=== PATIENT | female | born 1975 | race Hispanic/Latino ===

== ENCOUNTER 2021-02-04 06:53 | Day surgery (SDC) | payer OTHER ==
[2021-02-03 16:27] LABS: BASOPHILS % (AUTO) 0.6 % (0.0-5.0); EOSINOPHILS % (AUTO) 1.7 % (0.0-8.0); HEMATOCRIT 31.9 % (36-48); LYMPHOCYTES % (AUTO) 20.3 % (21.0-51.0); MEAN CORPUSCULAR HEMOGLOBIN 23.7 pg (27.0-33.0); MEAN CORPUSCULAR HGB CONC 30.4 g/dL (32.0-36.0); MONOCYTES % (AUTO) 9.9 % (3.0-13.0); NEUTROPHILS % (AUTO) 67.2 % (40.0-77.0); PLATELET COUNT (AUTO) 394 K/uL (130-400); RED BLOOD CELL COUNT(AUTO) 4.09 MIL/uL (4.00-5.50); RED CELL DISTRIBUTION WIDTH 17.8 % (11.0-15.5); WHITE BLOOD COUNT (AUTO) 9.1 K/uL (4.8-10.8)
[2021-02-03 16:52] VITALS: BP 117/60
[~2021-02-04] VITALS: Ht 157.5 cm; Wt 78.7 kg
[2021-02-04] VITALS (14 sets, daily range): BP systolic 94–118; BP diastolic 45–64
[~2021-02-04 06:53] MED LIST: ACET1TAB25 PO; LEVO50TA11 PO; LOSA50TA64 PO; SERT50TA PO
[2021-02-04] MEDS ORDERED: CEFAZOLIN SODIUM 1 GM VIAL ONE (07:40)
[2021-02-04] MEDS ORDERED: LACTATED RINGERS 1000ML 1,000 ML IV ONE (07:40)
[2021-02-04] MEDS ORDERED: MIDAZOLAM HCL 1 MG/ML 2ML VIAL ONE (07:57)
[2021-02-04] MEDS ORDERED: PROPOFOL 10 MG/ML 20ML VIAL IV ONE (07:57)
[2021-02-04] MEDS ORDERED: ROCURONIUM 10MG/1ML SYR 10 MG/ML ML ONE (07:59)
[2021-02-04] MEDS ORDERED: ONDANSETRON 4MG INJ ONE (07:59)
[2021-02-04] MEDS ORDERED: FENTANYL CITRATE PF 50 MCG/1 ML 2ML VIAL ONE ×2 (08:00→08:20)
== END 2021-02-04 10:41 | disposition home or self-care (01) ==
LOC: DAH 06:53
PROVIDERS: ATTEND Specialist
DX: N92.0 Excessive and frequent menstruation with regular cycle (principal); N75.1 Abscess of Bartholin's gland; Z20.822 Contact with and (suspected) exposure to COVID-19; I10 Essential (primary) hypertension; F41.9 Anxiety disorder, unspecified; F32.9 Major depressive disorder, single episode, unspecified; Z79.899 Other long term (current) drug therapy
CPT/HCPCS: 36415; 56440; 58120; 84703; 85025; 87070; 87076; 87077; 87186; 87205; 87635; A4215; A4221; A4222; A4223; A4344; A4351; A4663; C9803; J0690; J2250; J2405; J2704; J3010 ×2; J7120